=== PATIENT | female | born 1990 | race African-American/Black ===

== ENCOUNTER 2016-08-27 10:56 | Outpatient (CLI) | payer OTHER ==
[~2016-08-27] VITALS: Ht 170.2 cm; Wt 65.0 kg
[2016-08-27 11:12] VITALS: BP 103/57
[2016-08-27] MEDS ORDERED: PRENTAB9 PO (11:16)
--- NOTE | 2016-08-27 13:22 | IPNPDOC ---
Obstetrical Progress Note Date of Service The patient was seen on 08/27/16 at 13:16. Progress Note [id number] @ 1149 26 yo @ 35+0 by LMP([id number]) presented to L&D Triage ambulatory with c/o CTX x 2 hours, Q 5min. She also reports LOF since having IC last night. S: Reports she is uncomfortable with CTXs. She is cramping Q 5 min for <90 sec. Cramping has been occurring for 2 hours. She is also having a small amount of clear discharge this am. Reports IC last night. O: VS- WNL, afebrile FHR- BL- 130, moderate variability, + accels, no decles CTX- irregular, > 10 min apart, palpated as mild, resting tone palpated as soft Spouse is at bedside Valsalva- negative No pooling noted Ferning negative SVE- fingertip/thick/-3, vtx/mod/post A: 26 yo @ 35+0 with reactive NST, not in labor P: discharged to home with strict return precautions. Ida SALINAS CNM VS, I&O, 24H, Fishbone Vital Signs/I&O Vital Signs Date Time Temp Pulse Resp B/P Pulse Ox O2 Delivery O2 Flow Rate FiO2 08/27/16 11:12 97.9 99 18 103/57 Room Air IDA TAVERAS CNM Aug 27, 2016 13:22
--- NOTE | 2016-08-27 15:07 | IPNPDOC ---
VS, I&O, 24H, Fishbone Vital Signs/I&O Vital Signs Date Time Temp Pulse Resp B/P Pulse Ox O2 Delivery O2 Flow Rate FiO2 08/27/16 11:12 97.9 99 18 103/57 Room Air IDA TAVERAS CNM Aug 27, 2016 13:33
== END 2016-08-27 13:02 | disposition home or self-care (01) ==
LOC: M LDO 10:56
PROVIDERS: ATTEND Midwife
DX: O47.03 False labor before 37 completed weeks of gestation, third trimester (principal); Z3A.35 35 weeks gestation of pregnancy

== ENCOUNTER 2016-09-26 05:42 | Outpatient (CLI) | payer OTHER ==
[~2016-09-26 05:42] MED LIST: PRENTAB9 PO
[2016-09-26 06:13] VITALS: BP 113/56
== END 2016-09-26 07:35 | disposition home or self-care (01) ==
LOC: M LDO 05:42
PROVIDERS: ATTEND Student in an Organized Health Care Education/Training Program
DX: O47.1 False labor at or after 37 completed weeks of gestation (principal); O09.33 Supervision of pregnancy with insufficient antenatal care, third trimester; Z3A.39 39 weeks gestation of pregnancy

== ENCOUNTER 2016-09-26 13:38 | Inpatient (IN) | payer OTHER ==
[~2016-09-26] VITALS: Ht 170.2 cm; Wt 67.0 kg
[2016-09-26] VITALS (43 sets, daily range): BP systolic 92–141; BP diastolic 46–99
[2016-09-26] MEDS ORDERED: LACTATED RINGER'S 1000 ML IV STA (13:39)
[2016-09-26] MEDS ORDERED: LR 1,000 ML IV SCH (13:39)
--- NOTE | 2016-09-26 14:08 | HPEPDOC ---
Obstetrical History & Physical General Date of Admission Sep 26, 2016 at 13:38 History of Present Illness 26 yo @ 39+2 by LMP([id number]) presents to L&D in wheelchair from [facility] for active labor. She was discharged from L&D triage this am with a cervical exam 2 cm. In clinic this am she was found to be 3 cm. In clinic this afternoon found to be 5 cm. Reports strong CTXs. Denies DFM, LOF and VB. GBS negative. Chief Complaint: Contractions, term Information Provided By: Patient Age: 26 : 3 Term: 1 Pre-term: 0 Abortions: 1 Livin Care Care: Limited Care (Late entry to care @ 21 wks) Number of Visits: 7 Dating Final EDC: Oct 01, 2016 Final EDC for Daily Update: Oct 01, 2016 Final EDC by: LMP Estimated Date of Confinement: Oct 01, 2016 EGA at Admission: 39.2 Antepartum Course Diagnos(e)s 1. late entry to care @ 21 wks from [facility]- zika testing negative 2. anemia- iron daily Height (inches): 67 Pre- weight (lbs.): 131 Admission Weight (lbs.): 156 Change in Weight (lbs.): 25 Past Medical History Past Obstetrical History : Past Obstetrical History: Multigravida Date of Delivery: Sep 22, 2010 Gestation: 40 Type of Delivery: Spontaneous Vaginal Del. Sex of : Female Weight of Infant (grams): 2700 Complications: No [facility] History: Spontaneous (2016) Past Medical History Medical History hx fibroids Surgical History: Tonsilectomy, [place] teeth Family History Significant Family History: No pertinent family hx Social History Marital Status: Family situation: Spouse/partner home Psychosocial History: No pertinent psych hx * Smoker: non-smoker Alcohol: Denies Drugs: denies Abuse Violence Screening Have you been hit/kicked/slapp: No Have you been sexually assault: No Imunizations Tdap status: current ([id number]) Influenza Status: current () Allergies Coded Allergies: SEAFOOD (Verified Allergy, Severe, PT STATES HIVES AND THROAT SWELLSUP, 08/27/16) Medications Scheduled Multivitamins/ ( 27-0.8 mg) 1 Tab Tab 1 TAB PO DAILY Physical Examination Physical Examination GENERAL: A&O x 3 BREAST: Gravid ABDOMEN: Gravid and non-tender to touch. FETUS: VTX by Yuri and SVE. HEART RATE: RRR, no m/r/g LUNGS: CCTA EXTREMITIES: No edema. No clonus. DTRs [id number] grams Laboratory Data CBC/BMP 8.6/8.7/26.3/251 Urine Culture: Other (<10,000 not clinically significant) Pertinent Laboratoy Data Blood Type: O+ RBC Antibody Screen: Negative HIV: Negative Hepatitis B: Negative Hepatitis C: Unknown Rapid Plasma Reagin: Nonreactive Rubella: Immune Varicella: Nonreactive Chlamydia/Gonorrhea: Negative Group B Streptococcus: Negative Quad Screen Test: Unknown (missed window) Cystic Fibrosis: Unknown Glucose Tolerance Test: 76 Diag/Inter Therapy Anemia- iron Anatomy Ultrasound Ultrasound Date: Jun 13, 2016 Placenta Location: Posterior Normal Anatomy: Yes Placenta Previa: No Estimated Weight (grams): 727 Vaginal Examination Dilation: 5 cm Effacement: 80+% Station: -2 Cervical Consistency: Soft Presentation: Cephalic presentation Position: Vertex (occiput) Assessment Heart Rate (FHR): 130 Variability: Moderate Accelerations: Positive Decelerations: None Tocometer Contractions: Yes Frequency: every 1-3 min. Duration: less than 90 seconds Strength: palpated as strong Multi-drug resistant Organism: No history of MDRO Assessment/Plan Assessment 26 yo @ 39+2 by LMP([id number]) in active labor with CAT I FHR Tracing. GBS negative. Plan Admit and orient. [employer] and consent. Diet: clear liquid GBS negative Labs and IV per unit protocol. LR 1000 ml bolus, then 125 ml/hr Anticipate C-S as appropriate. IDA TAVERAS CNM Sep 26, 2016 14:08
[2016-09-26 15:00] LABS: MEAN CORPUSCULAR HEMOGLOBIN 29.3 pg (27.0-33.0); MEAN CORPUSCULAR HGB CONC 31.2 g/dl (32.0-36.5); MEAN CORPUSCULAR VOLUME 93.9 fl (80.0-96.0); RED CELL DISTRIBUTION WIDTH 15.5 % (11.5-14.5); WHITE BLOOD COUNT 12.4 K/mm3 (4.0-10.0)
[2016-09-26] MEDS ORDERED: FENTANYL 2MCG/ML ROPIVACAINE 0.2% IN 0.9% NACL 200ML IVBAG As Ordered ONE (15:00)
--- NOTE | 2016-09-26 15:05 | IPNPDOC ---
Obstetrical Progress Note Date of Service The patient was seen on 09/26/16 at 15:00. Progress Note [id number] @ 1500 26 yo @ 39+2 by LMP([id number]) in active labor with CAT I FHR Tracing. GBS negative. S: pt is yelling through CTXs. Want to go to the bathroom, but is c/o increasing pressure. Spouse is at bedside O: VS- WNL FHR- 125, moderate variability, + accels, intermittent early decels CTX- Q 3-5, lasting < 90 sec, palpated as strong, resting tone palpated as soft SVE- 5/100 with bulging bag A: 26 yo @ 39+2 with continued CTXs and CAT I FHR tracing. Minimal if any cervical change noted P: continue to monitor and assess, reassess in 2 hours, if no or minimal cervical change initiate pitocin, Epidural tere. VS, I&O, 24H, Fishbone Vital Signs/I&O Vital Signs Date Time Temp Pulse Resp B/P Pulse Ox O2 Delivery O2 Flow Rate FiO2 09/26/16 13:49 98.9 73 18 123/68 Laboratory Data 24H LABS Laboratory Tests 2 09/26/16 14:21: 09/26/16 14:49: Serology Scanned Report Hepatitis B Testing IDA TAVERAS CNM Sep 26, 2016 15:04
[2016-09-26] MEDS ORDERED: ePHEDrine SULFATE 25 MG/5 ML(5MG/ML) SYRINGE As Ordered ONE (16:16)
[2016-09-26] MEDS ORDERED: ONDANSETRON 4MG/2ML VIAL (J2405) IV PRN ×2 (16:30→20:15)
[2016-09-26] MEDS ORDERED: REFRIGERATOR IV KEYS XX PRN (16:30)
[2016-09-26] MEDS ORDERED: EPIDURAL COMMENT XX SCH (16:30)
[2016-09-26] MEDS ORDERED: EPIDURAL/PCA KEYS XX PRN (16:30)
[2016-09-26] MEDS ORDERED: ePHEDrine SULFATE 25 MG/5 ML(5MG/ML) SYRINGE IV PRN (16:30)
[2016-09-26] MEDS ORDERED: NALOXONE INJ 0.4 MG/1 ML VIAL (J2310) IV PRN (16:30)
[2016-09-26] MEDS ORDERED: diphenhydrAMINE INJ 50MG/ML VIAL (J1200) IV PRN (16:30)
[2016-09-26] MEDS ORDERED: FENTANYL/ROPIVACAINE/NACL BAG 200 ML EPIDURAL SCH (16:30)
[2016-09-26] MEDS ORDERED: LACTATED RINGER'S 1000 ML IV PRN (16:30)
[2016-09-26] MEDS ORDERED: OXYTOCIN 30 UNITS IN 0.9% NaCl 500ML IV BAG (J2590) As Ordered ONE (18:29)
--- NOTE | 2016-09-26 20:01 | DNPDOC ---
Delivery Note Delivery Note DATE OF DELIVERY: Sep 26, 2016 at 1934 PREDELIVERY DIAGNOSIS: 39+2 weeks' gestation and labor. POST DELIVERY DIAGNOSIS: Delivered. PROCEDURE: CLINICAL TEAM LEAD: Lidia Velez CNM ANESTHESIA: epidural ESTIMATED BLOOD LOSS: 250 mL. FINDINGS: 7 pound 11 ounce male , Score 8/9, nuchal cord times 1. DELIVERY SUMMARY: Patient is a 26-year-old 3 now para 2012 who was admitted to labor and delivery for Active Labor. SROM occured @ 1903 with thick particulate meconium noted. Patient found to be fully dilated and at +1 with epidural infusing and a strong desire to push; delivery was via of a viable male infant to a clean field; the presented occiput anterior with nuchal cord x1, easily reduced; anterior shoulder(right) delivered with mild downward traction, then the posterior shoulder delivered with mild upward traction; remainder of corpus delivered spontaneously; placed on mother' s abdomen with a strong cry. Cord clamped x 2 and cut by myself; the child was taken to the warmer and had a vigorous cry at 1 min. Pitocin was started with delivery of the anterior shoulder; 3 vessel cord and normal placenta were delivered without complications approx 3 minutes later; fundal massage was applied and vaginal vault was swept for clots; vagina and perineum examined; no lacerations noted. Fundus firm at U-1. VML=400 ml, Infant had 8/9; mother and are doing well and were stable in the delivery room; anticipate routine PP course. Delivering Provider: LASHAWN Gutierrez KELLI C. CNM Sep 26, 2016 20:00
[2016-09-26] MEDS ORDERED: OXYTOCIN DRIP 30 UNITS in APPROPRIATE DILUENT 1 EA IV SCH (20:02)
[2016-09-26] MEDS ORDERED: ACETAMINOPHEN 500 MG TAB PO PRN (20:15)
[2016-09-26] MEDS ORDERED: DIBUCAINE 1% OINTMENT 30GM TOP PRN (20:15)
[2016-09-26] MEDS ORDERED: DOCUSATE SODIUM 100 MG CAP PO PRN (20:15)
[2016-09-26] MEDS ORDERED: ANUSOL HC CREAM 30GM TOP PRN (20:15)
[2016-09-26] MEDS ORDERED: PROMETHAZINE 25 MG TAB PO PRN (20:15)
[2016-09-26] MEDS: IBUPROFEN 800 MG TAB PO PRN (21:08)
[2016-09-27] MEDS: IBUPROFEN 800 MG TAB PO PRN ×2 (05:25→22:57)
[2016-09-27 05:43] VITALS: BP 116/58
--- NOTE | 2016-09-27 06:08 | IPNPDOC ---
Text Note Date of Service The patient was seen on 09/27/16. NOTE Kahlil is a 26yo [id number] doing well on PPD 1 s/p uncomplicated at 1934 on 09/26. Last night called by RN for "assisted fall in the bathroom"- RN reported patient felt dizzy and she helped her sit to the floor. Her lightheadeness self- corrected and resolved and she did not fall and hit any part of her body. Denies any pain. She is and supplementing with formula. Lochia decreasing, spontaneously voiding and ambulating without difficulty. Tolerating regular diet. Denies f/c/n/v/SOB/CP/PIMENTEL/abdominal pain. Vitals wnl, afebrile Exam: General: WDWN, NAD, resting comfortably Cardiac: S1S2 present, no murmur Lungs: CTAB without wheeze/crackles Abdomen: soft, NTTP, fundus firm u-2cm Extremities: no tenderness of calves bilaterally Assessment: Kahlil is a 26yo [id number] doing well on PPD 1 s/p uncomplicated at 1934 on 09/26. Vitals wnl, benign exam. No e/o infection, hemodynamically stable. Plan: -routine care -motrin/tylenol prn pain -encourage and ambulation -likely discharge to home tomorrow Dr. Juan Blanco MD [place] [facility], I+O [facility] [place] I+O Laboratory Tests 09/26/16 14:05 Red Blood Count 2.84 L, Mean Corpuscular Volume 93.9, Mean Corpuscular Hemoglobin 29.3, Mean Corpuscular Hemoglobin Concent 31.2 L, Red Cell Distribution Width 15.5 H Vital Signs Date Time Temp Pulse Resp B/P Pulse Ox O2 Delivery O2 Flow Rate FiO2 09/27/16 05:43 99.1 88 16 116/58 I&O- Last 24 Hours up to 6 AM 09/27/16 06:00 Intake Total 2865 ml Output Total 2700 ml Balance 165 ml JUAN BLANCO MD Sep 27, 2016 06:08
[2016-09-27] MEDS ORDERED: PRENATAL VITAMIN TAB PO SCH (09:00)
[2016-09-27 18:00] VITALS: BP 109/59
[2016-09-28 06:23] VITALS: BP 101/54
[2016-09-28] MEDS ORDERED: MOTR200T44 PO (07:54)
[2016-09-28] MEDS ORDERED: COLA100C3 PO (07:54)
[2016-09-28] MEDS ORDERED: TYLE325T5 PO (07:54)
== END 2016-09-28 11:25 | disposition home or self-care (01) | DRG 775 ==
LOC: M LDI 13:38 → M OBS 22:13
PROVIDERS: ADMIT Midwife; ATTEND Midwife
PROC: 10E0XZZ Delivery of Products of Conception, External Approach (ICD-10-PCS; principal; 2016-09-26)
DX: O99.02 Anemia complicating childbirth (principal); D64.9 Anemia, unspecified; Z3A.39 39 weeks gestation of pregnancy; O69.81X0 Labor and delivery complicated by cord around neck, without compression, not applicable or unspecified; Z37.0 Single live birth

== ENCOUNTER 2016-12-17 11:22 | Emergency (ER) | payer OTHER ==
[~2016-12-17] VITALS: Ht 170.2 cm; Wt 56.7 kg
[2016-12-17 11:22] VITALS: BP 134/58
[~2016-12-17 11:22] MED LIST changes: +COLA100C3 PO; +MOTR200T44 PO; +TYLE325T5 PO
[2016-12-17 12:32] LABS: BASO % 0.3 % (0.0-1.0); EOS % 0.9 % (0.0-3.0); LARGE UNSTAINED CELL # 0.1 K/mm3 (0.0-0.4); LARGE UNSTAINED CELL % 2.2 % (0.0-4.0); LYMPH % 20.6 % (24.0-44.0); MEAN CORPUSCULAR HEMOGLOBIN 29.3 pg (27.0-33.0); MEAN CORPUSCULAR HGB CONC 31.5 g/dl (32.0-36.5); MONO # 0.3 K/mm3 (0.0-0.8); MONO % 5.9 % (0.0-5.0); NEUTROPHILS % 70.2 % (36.0-66.0); PLATELET COUNT, AUTOMATED 311 k/mm3 (150-450); WHITE BLOOD COUNT 4.3 K/mm3 (4.0-10.0)
== END 2016-12-17 12:44 | disposition home or self-care (01) ==
LOC: M ED 12:35
DX: N92.1 Excessive and frequent menstruation with irregular cycle (principal)